=== PATIENT | female | born 2000 | race Hispanic/Latino ===

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

== ENCOUNTER 2022-06-14 17:05 | Emergency (ER) | payer SELFPAY ==
[~2022-06-14] VITALS: Ht 149.9 cm; Wt 79.0 kg
[2022-06-14 17:20] VITALS: BP 118/72
[2022-06-14 17:31] VITALS: BP 124/72
[2022-06-14 18:00] VITALS: BP 121/87
[2022-06-14] MEDS ORDERED: AMOX/K CLAV875 M1 PO (18:11)
[2022-06-14 18:31] VITALS: BP 120/83
[2022-06-14 19:42] VITALS: BP 120/83
== END 2022-06-14 19:48 | disposition home or self-care (01) | DRG 605 ==
LOC: ED 17:05
DX: S60.571A Other superficial bite of hand of right hand, initial encounter (principal); W54.0XXA Bitten by dog, initial encounter

== ENCOUNTER 2024-07-13 14:48 | Emergency (ER) | payer SELFPAY ==
[~2024-07-13] VITALS: Ht 149.9 cm; Wt 70.0 kg
[~2024-07-13 14:48] MED LIST changes: +AMOX/K CLAV875 M1 PO
[2024-07-13 15:01] VITALS: BP 115/70
[2024-07-13 15:15] VITALS: BP 103/69
[2024-07-13] MEDS ORDERED: CORTISPORIN OTI10 ML AD (15:20)
[2024-07-13 15:30] VITALS: BP 116/76
== END 2024-07-13 15:42 | disposition home or self-care (01) | DRG 156 ==
LOC: ED 14:48
DX: H60.91 Unspecified otitis externa, right ear (principal)